=== PATIENT | female | born 1995 | race Caucasian/White ===

== ENCOUNTER 2017-12-07 05:04 | Inpatient (IN) | payer OTHER, SELFPAY ==
[2017-12-07] MEDS: Lactated Ringers 1,000 ML 50 ML IV ×3 (05:50→13:03)
[2017-12-07 06:23] LABS: Hematocrit 34.3 % (37-47); Hemoglobin 11.1 g/dl (12.0-15.0); Mean Corp Hgb Conc 32.4 g/gl (32-36); Mean Corpuscular Hgb 28.3 pg (27.0-32.0); Mean Corpuscular Volume 87.5 fL (81-99); Mean Platelet Vol. 10.3 fl (6.2-12.0); Platelet Count 217 K/mm3 (150-450); RBC Distribution Width CV 14.2 % (11.6-14.6); RBC Distribution Width SD 45.3 fl (35.1-43.9); Red Blood Count 3.92 M/mm3 (4.2-5.4); White Blood Count 17.9 K/mm3 (4.4-11.0)
[2017-12-07 06:27] LABS: Scan Indicated on CBC? Y/N NO
[2017-12-07 06:31] VITALS: BMI 30.8
[2017-12-07] MEDS: proMETHazine 25 MG/ML Syringe IV (06:41)
[2017-12-07] MEDS: fentaNYL-bupivacaine (epidural) 100 ML BAG EPIDURAL ×2 (07:30→12:36)
--- NOTE | 2017-12-07 08:45 | PCM.HP.OB ---
History Date of Admission: 12/07/17 Final SILVIANO: 12/08/17 Final SILVIANO Source: US <20 weeks Gestational age: 39 Weeks and 6 Days History of this : 21-year-old 1 para 0 female who presents at 39-6/7 weeks gestation with spontaneous rupture membranes in labor. She denies any gross vaginal bleeding she has had leaking of fluid since approximately 4:30 AM. She has been deandre all night and they got more intense. She arrived to labor and delivery and was found to be ruptured and in labor. He has been uncomplicated to date. Medical history is significant for pain headaches irritable bowel syndrome kidney stones and history of abnormal Pap smears. Past surgical history: Colectomy, cystoscopy, tooth extraction Allergies No Known Allergies Allergy (Verified 12/07/17 06:28) Current Medications Acetaminophen (Tylenol) 325 - 650 mg PO Q4H PRN PRN PRN Reason: PAIN OR FEVER >100.4F Al Hydroxide/Mg Hydroxide (Mylanta Ii) 15 - 30 ml PO Q4H PRN PRN PRN Reason: INDIGESTION Citric Acid/Sodium Citrate (Bicitra) 30 ml PO UD PRN Lactated Ringer's () 1,000 mls @ 50 mls/hr IV .Q20H MONICA Last Admin: 12/07/17 08:11 Dose: 50 mls/hr Nalbuphine HCl (Nubain) 5 - 10 mg IV Q3H PRN PRN PRN Reason: PAIN (4-10/10) Ondansetron HCl (Zofran) 4 mg IV Q8H PRN PRN PRN Reason: NAUSEA Promethazine HCl (Phenergan) 6.25 - 12.5 mg IV Q4H PRN PRN; Protocol PRN Reason: IF NAUSEA PERSISTS Last Admin: 12/07/17 06:41 Dose: 12.5 mg Sodium Chloride () 5 - 15 ml IV UD MONICA Last Admin: 12/07/17 08:13 Dose: Not Given Smoking Status: Never smoker Alcohol: None Drug Use: none Number of Fetus(es): 1 Review of Systems Constitutional: Denies: Chills, Fever Cardiovascular: Denies: Chest Pain Respiratory: Denies: Cough Physical Exam General: Alert, Cooperative, No apparent distress Cardiovascular: Regular Rhythm Lungs: Normal air movement Abdomen: Soft, Non Tender, Non-Distended, Gravid, Appropriate for Gestational Age Estimated gestational size: Appropriate for gestational size Presentation: Cephalic Cervix Dilation (cm): 6 Station: 0 Effacement (%): 90 Assessment/Plan The heart tones are category 1. Tocometer shows regular contractions. 21-year-old 1 para 0 at 39-6/7 weeks gestation with spontaneous rupture of labor and brings in labor. Estimated weight is less than 4500 g and pelvis clinically adequate to expect vaginal delivery. May have epidural or oxide or Nubain as needed for pain control. And augmentation as needed.
[2017-12-07] MEDS: Oxytocin 30 units/NS 500 ml 30 UNITS/500 ML IV.SOLN IV (12:36)
[2017-12-07] MEDS: Oxytocin 30 units/NS 500 ml 30 UNITS/500 ML IV.SOLN 334 UNITS IV (16:32)
[2017-12-07] MEDS: Oxytocin 30 units/NS 500 ml 30 UNITS/500 ML IV.SOLN 167 UNITS IV (17:02)
--- NOTE | 2017-12-07 17:04 | PCM.OB.VAG ---
Vaginal Delivery Maternal Presentation: Active Labor Amniotic Membrane Rupture Type: Spontaneous at home Amniotic Fluid Description: Clear Final SILVIANO: 12/08/17 Final SILVIANO Source: US <20 weeks Gestational age: 39 Weeks and 6 Days Date of Procedure: 12/07/17 Pre-Operative Diagnosis: labor, maternal exhaustion Post-Operative Diagnosis: same Surgery/ Procedure Performed: Vacuum Assisted Vaginal Delivery - outlet Type of Anesthesia: Epidural Description of Procedure: Patient was complete for 4 hours, pushing for 3+ hours. The first 1-1/2-2 hours she did not make a lot of progress. The last hour she made significant progress. The position was ROT, +5 station, labia 2 cm w/ maternal pushing. There was a moderate amount of caput. With maternal push and medial rotation I was able to manually rotate the position to THEODORE. She pushed 2 more times without significant descent. The position stayed THEODORE. I discussed with her and her option of trial of vacuum assisted delivery as she was getting fatigued. She desired trial of vacuum. EFW < 4500 gm clinically, pelvis clinically adequate. Carr in place. Epidural in. The Kiwi vacuum was placed and the pressure created to 550 mmHg. I pulled with 1 contraction with significant descent. Pulled with the second contraction to and the vacuum was removed with 0 pop offs. The head was delivered then with terminal pushing efforts as the perineum was supported. The shoulders were delivered with maternal pushing efforts and minimal downward traction in less than 15 seconds without difficulty. The remainder the delivered quickly without difficulty and the infant was placed on the maternal abdomen. The cord was clamped and cut after 1 minute. Cord gases were collected. The placenta delivered spontaneously and intact. The second-degree perineal laceration was reapproximated with 2-0 Vicryl suture. A vaginal sweep was completed. Sponge and needle counts were correct. Presentation: THEODORE Placental Delivery Description: Spontaneous Placenta Disposition: [facility] Cord Vessel Description: 3 Vessels Cord Entanglement: None Drain: Carr to straight drain Estimated Blood Loss: 450cc Infant A gender: Male (1 minute): 8 (5 minute): 9 Episiotomy Description: None Laceration: 2nd degree Medications given after delivery: IV Pitocin Complications: None
[2017-12-07] MEDS: Naproxen 250 MG Tablet PO (19:33)
[2017-12-07 19:45] VITALS: BP 103/65; PULSE 107; RESP 18; TEMP 37.4; O2SAT 98
[2017-12-08 00:25] VITALS: BP 108/50; PULSE 102; RESP 18; TEMP 36.6; O2SAT 100
[2017-12-08] MEDS: Acetaminophen 500 MG Tablet 1000 MG PO ×2 (01:01→09:34)
[2017-12-08] MEDS: Naproxen 250 MG Tablet PO ×2 (04:49→14:25)
[2017-12-08 04:52] VITALS: BP 109/65; PULSE 96; RESP 16; TEMP 36.6; O2SAT 99
--- NOTE | 2017-12-08 08:37 | PCM.PN.OB ---
Subjective: Patient sitting up in bed, denies any other complaints today. Reports baby is latching well to breast; denies nipple or breast pain. Patient reports that vaginal bleeding is subsiding; denies any issues with urination or ambulation. Objective: Breasts soft, filling. Nipples without redness, cracks or blisters FF midline @ 2FB below umbilicus Scant Rubra Lochia Perineum Well Approximated - Physical Exam General: Alert, Oriented x3, Cooperative HEENT: Atraumatic, Normocephalic Neck: Supple Lungs: Clear to auscultation, Normal air movement Cardiovascular: Regular rate, No murmurs Abdomen: Soft, Non Tender Extremities: No edema, Capillary Refill Less than 3 Seconds, No Calf Tenderness Skin: No rashes, No breakdown Musculoskeletal: No Tenderness to Palpation of Joints or Extremities Neurological: Cranial nerves II-XII grossly intact, Deep Tendon Reflexes 2+/4 and Symmetrical, Coordination normal Psych/Mental Status: Normal Affect, Appropriate, Alert and oriented to time, place, person, mood and affect Vital Signs Temp Pulse Resp BP Pulse Ox 98 F 96 16 109/65 99 12/08/17 04:52 12/08/17 04:52 12/08/17 04:52 12/08/17 04:52 12/08/17 04:52 Oxygen Delivery Method Room Air Weight: 173 lb 15.115 oz Body Mass Index (BMI) 30.8 Intake and Output for Last 24 Hours 12/06/17 12/07/17 12/08/17 23:59 23:59 23:59 Intake Total 4372 / 4372 Output Total 2200 / 2200 Balance 2172 / 2172 Medical Necessity - Tobacco Use Smoking Status: Never smoker Assessment/Plan A: 21 y/o G1 now P1, s/p VAVD, PPD #1, Normal course P: 1) Continue present management 2) Help support , IBCLC visit today 3) Anticipate discharge to home tomorrow Lily Lema CNM
[2017-12-08 09:00] VITALS: BP 117/62; PULSE 100; RESP 16; TEMP 35.9; O2SAT 98
[2017-12-08] MEDS: Dibucaine 30 GM Tube 1 APPLIC TOPICAL (09:35)
[2017-12-08 13:15] VITALS: BP 106/65; PULSE 80; RESP 16; TEMP 35.9; O2SAT 98
[2017-12-08] MEDS: Senna/Docusate Sodium 1 Tablet PO (17:35)
[2017-12-08 17:40] VITALS: BP 110/56; PULSE 102; RESP 18; TEMP 36.1
[2017-12-08 19:40] VITALS: BP 116/72; PULSE 85; RESP 16; TEMP 36.5
[2017-12-09 01:15] VITALS: BP 107/57; PULSE 90; RESP 18; TEMP 36.3
[2017-12-09] MEDS: Naproxen 250 MG Tablet PO (04:52)
[2017-12-09 08:15] VITALS: BP 111/68; PULSE 95; RESP 20; TEMP 36.4
--- NOTE | 2017-12-09 11:35 | PCM.DCVAG ---
Discharge Diet: No Restrictions Discharge Activity: Return to Normal Activity, May not drive while taking narcotic pain medications., May Shower May resume sexual activity in: 4-6 weeks Additional Activity Instructions:: Nothing in the vagina for 4-6 weeks. You may return to work/school in 6 weeks. Call your doctor if your incision/area has: Continuous Slow Oozing, Sudden Increased Bleeding, Increased Pain/ Swelling, Increased Redness, Foul Smelling Discharge Additional Instructions: If you experience any of the following, contact your healthcare provider. Bleeding that soaks a pad every hour for 2 hours Fever 100.4 or higher Unrelieved incision or abdominal pain Swelling, redness, discharge or bleeding from your incision or episiotomy site Your incision begins to separate Problems urinating (including inability to urinate or burning while urinating). Visual changes Severe headache Flu-like symptoms Pain or redness in one of both of your breasts Pain, warmth, tenderness or swelling in your legs, especially the calf area Frequent nausea and vomiting Symptoms of depression or anxiety If you experience any of the following, call 911 or go to the nearest Emergency Room. Chest pain Problems breathing Seizure activity Partial or complete paralysis of a body part, slurred speech, weakness or drooping of the face, or a sudden inability to walk or hold your balance Allergies/Adverse Reactions: Allergies No Known Allergies Allergy (Verified 12/07/17 06:28) Medications to take at Discharge Vits [Prenatabs FA ] 1 tablet PO DAILY 12/07/17 Hydrocodone/Acetaminophen [[place] 5-325 Tablet] 1 each PO Q6H PRN PRN 5 Days #8 tablet 12/09/17 Ibuprofen [Motrin] 600 mg PO Q6H PRN #60 tab 12/09/17 The following prescriptions were given: Hydrocodone/Acetaminophen [[place] 5-325 Tablet] 1 each PO Q6H PRN PRN 5 Days #8 tablet PRN Reason: Pain Ibuprofen [Motrin] 600 mg PO Q6H PRN #60 tab PRN Reason: Pain Please Follow Up With: Adriana Dupont MD - [phone] When: Call to make an appointment with your doctor's office in 6 weeks. If you had elevated Blood Pressure or 4th degree laceration you will need to be seen in 2 weeks. Primary Care Physician: Ziol,Rahda, OTOLARYNGOLOGIST-C [Primary Care Provider] -
--- NOTE | 2017-12-09 11:36 | DCINST_ITS ---
Discharge Diet: No Restrictions Discharge Activity: Return to Normal Activity, May not drive while taking narcotic pain medications., May Shower May resume sexual activity in: 4-6 weeks Additional Activity Instructions:: Nothing in the vagina for 4-6 weeks. You may return to work/school in 6 weeks. Call your doctor if your incision/area has: Continuous Slow Oozing, Sudden Increased Bleeding, Increased Pain/ Swelling, Increased Redness, Foul Smelling Discharge Additional Instructions: If you experience any of the following, contact your healthcare provider. * Bleeding that soaks a pad every hour for 2 hours * Fever 100.4 or higher * Unrelieved incision or abdominal pain * Swelling, redness, discharge or bleeding from your incision or episiotomy site * Your incision begins to separate * Problems urinating (including inability to urinate or burning while urinating) . * Visual changes * Severe headache * Flu-like symptoms * Pain or redness in one of both of your breasts * Pain, warmth, tenderness or swelling in your legs, especially the calf area * Frequent nausea and vomiting * Symptoms of depression or anxiety If you experience any of the following, call 911 or go to the nearest Emergency Room. * Chest pain * Problems breathing * Seizure activity * Partial or complete paralysis of a body part, slurred speech, weakness or drooping of the face, or a sudden inability to walk or hold your balance Allergies/Adverse Reactions: Allergies No Known Allergies Allergy (Verified 12/07/17 06:28) Medications to take at Discharge Vits [Prenatabs FA ] 1 tablet PO DAILY 12/07/17 Hydrocodone/Acetaminophen [[place] 5-325 Tablet] 1 each PO Q6H PRN PRN 5 Days #8 tablet 12/09/17 Ibuprofen [Motrin] 600 mg PO Q6H PRN #60 tab 12/09/17 The following prescriptions were given: Hydrocodone/Acetaminophen [[place] 5-325 Tablet] 1 each PO Q6H PRN PRN 5 Days #8 tablet PRN Reason: Pain Ibuprofen [Motrin] 600 mg PO Q6H PRN #60 tab PRN Reason: Pain Please Follow Up With: Adriana Dupont MD - [phone] When: Call to make an appointment with your doctor's office in 6 weeks. If you had elevated Blood Pressure or 4th degree laceration you will need to be seen in 2 weeks. Primary Care Physician: Radha Park NP-C [Primary Care Provider] -
--- NOTE | 2017-12-09 11:36 | PCM.PN.OB ---
Subjective: pain well controlled,a verage lochia, + BM. - Physical Exam General: Alert, Cooperative, No apparent distress Vital Signs Temp Pulse Resp BP Pulse Ox 97.6 F L 95 20 H 111/68 98 12/09/17 08:15 12/09/17 08:15 12/09/17 08:15 12/09/17 08:15 12/08/17 13:15 Oxygen Delivery Method Room Air Weight: 78.9 kg Body Mass Index (BMI) 30.8 Intake and Output for Last 24 Hours 12/07/17 12/08/17 12/09/17 23:59 23:59 23:59 Intake Total 4372 / 4372 Output Total 2200 / 2200 Balance 2172 / 2172 Medical Necessity - Tobacco Use Smoking Status: Never smoker Assessment/Plan PPD#2 s/p vacuum assisted vaginal delivery ready for d/c
[2017-12-09 14:00] VITALS: BP 105/58; PULSE 98; TEMP 36.5
== END 2017-12-09 15:00 | disposition home or self-care (01) | DRG 775 ==
PROVIDERS: Obstetrics & Gynecology; Admitting Provider Obstetrics & Gynecology; Family Provider Nurse Practitioner Family; PCP Nurse Practitioner Family; Visit Provider Obstetrics & Gynecology
DX: O32.4XX0 Maternal care for high head at term, not applicable or unspecified (principal); O42.02 Full-term premature rupture of membranes, onset of labor within 24 hours of rupture; O70.1 Second degree perineal laceration during delivery; O32.2XX0 Maternal care for transverse and oblique lie, not applicable or unspecified; Z3A.39 39 weeks gestation of pregnancy; Z37.0 Single live birth
CPT/HCPCS: 59050; 85027; 86850; 86900; 99218; J7120; G0378

== ENCOUNTER 2019-12-12 18:36 | Inpatient (IN) | payer OTHER, SELFPAY ==
[2019-12-12] VITALS (11 sets, daily range): BP systolic 121–203; BP diastolic 64–139; PULSE 82–93; TEMP 36.7–37.7; O2SAT 99–100; BMI 31.1
[2019-12-12] MEDS: Lactated Ringers 500 ML 999 ML IV (19:22)
[2019-12-12 19:24] LABS: ROM Internal Control Test YES-OK TO RESULT pt. (Internal QC)
[2019-12-12 19:25] LABS: ROM Patient Test POSITIVE (Negative)
[2019-12-12 19:35] LABS: Absolute Lymphocyte Count 2.42 X10^3/uL (0.83-4.51); Absolute Neutrophil Count 9.9 X10^3/uL (2.0-7.7); Basophil# 0.02 X10^3/uL; Basophil% 0.1 % (0-1); Eosinophil# 0.08 X10^3/uL; Eosinophils% 0.6 % (0-5); Hematocrit 41.3 % (37-47); Hemoglobin 13.5 g/dL (12.0-15.0); Lymphocyte # 2.42 X10^3/ul (4.0); Lymphocyte % 17.6 % (19-41); Mean Corp Hgb Conc 32.7 g/dL (32-36); Mean Corpuscular Hgb 29.8 pg (27.0-32.0); Mean Corpuscular Volume 91.2 fL (81-99); Monocyte# 1.18 X10^3/uL; Monocyte% 8.6 % (0-10); NRBC Flagged by Analyzer 0 % (0-5); Neutrophil # 9.85 X10^3/uL (2.7-7.7); Neutrophil % 71.8 % (47-70); Platelet Count 183 K/mm3 (150-450); RBC Distribution Width SD 57.2 fl (35.1-43.9); Red Blood Count 4.53 M/mm3 (4.2-5.4); White Blood Count 13.7 K/mm3 (4.4-11.0)
[2019-12-12] MEDS: Lactated Ringers 1,000 ML 200 ML IV (19:53)
[2019-12-12] MEDS: Oxytocin 30 units/NS 500 ml 30 UNITS/500 ML IV.SOLN 334 UNITS IV (20:50)
--- NOTE | 2019-12-12 21:16 | PCM.HP.OB ---
History Date of Admission: 12/12/19 Final SILVIANO: 12/06/19 Final SILVIANO Source: US <20 weeks Gestational age: 40 Weeks and 6 Days History of this : This is a 23 year-old, G [], P [], at 40 weeks gestational age. Allergies No Known Allergies Allergy (Verified 12/12/19 19:25) Home Medications: Home Medications Vits [Prenatabs FA ] 1 tablet PO DAILY 12/07/17 Docusate Sodium [Colace] 100 mg PO DAILY 12/12/19 Ferrous Sulfate [Iron] 325 mg PO DAILY 12/12/19 Smoking Status: Never smoker Alcohol: None History Past Pregnancies: Past Pregnancies Delivery Date Name GA/ Weeks Outcome Route Wt Sex Labor Length Anesthesia Delivery Location Provider FOB Physical Exam Vitals: Vital Signs Temp Pulse BP Pulse Ox 98.1 F 86 124/67 H 99 12/12/19 19:30 12/12/19 21:12 12/12/19 21:12 12/12/19 21:12 Assessment/Plan This is a 23 year-old, G2, P2, at 40&6 weeks gestational age. Patient admitted & proceeded to an . Routine care See [facility] prenatals
--- NOTE | 2019-12-12 21:18 | OP.PCM_ITS ---
Vaginal Delivery Maternal Presentation: Active Labor Amniotic Membrane Rupture Type: Spontaneous at home Amniotic Fluid Description: Clear Final SILVIANO: 12/06/19 Gestational age: 40 Weeks and 6 Days Date of Procedure: 12/12/19 Pre-Operative Diagnosis: Labor Post-Operative Diagnosis: Labor Surgery/ Procedure Performed: Spontaneous Vaginal Delivery Type of Anesthesia: Local with 1% lidocaine Description of Procedure: Patient prepped & draped in stirrups when C/C/+2. She pushed to deliver the fe nicole head. head gently guided to allow delivery of anterior and posterior shoulders. No excess traction placed on the head. Shoulders and body easily delivered. Infant placed on maternal abdomen where 3VC was clamped and cut in delayed fashion. Good uterine tone obtained. Presentation: Vertex, THEODORE Placental Delivery Description: Spontaneous Placenta Disposition: [facility] Cord Vessel Description: 3 Vessels Cord Entanglement: None Estimated Blood Loss: 300ml A gender: Female - Elvira (1 minute): 8 (5 minute): 9 Episiotomy Description: None Laceration: 1st degree - perineal - repaired wiht 3-0 vicryl Medications given after delivery: IV Pitocin Complications: None
[2019-12-12] MEDS: Ibuprofen 600 MG Tablet PO (23:19)
[2019-12-13] VITALS (11 sets, daily range): BP systolic 112–123; BP diastolic 69–84; PULSE 76–93; RESP 16–18; TEMP 36.4–37.2; O2SAT 96–99
[2019-12-13] MEDS: Ibuprofen 600 MG Tablet PO ×3 (06:31→21:13)
[2019-12-13] MEDS: Senna/Docusate Sodium 1 Tablet PO (08:16)
--- NOTE | 2019-12-13 11:02 | PCM.PN.OB ---
Subjective: Doing well per patient and nursing staff. Ambulating and taking PO without difficulty. without difficulty. Pain controlled. Denies any headache, visual changes, chest pain, increased shortness of breath, increased vaginal bleeding, or leg pain. Planning D/C home today. - Physical Exam Vitals/I&O's: Vital Signs Temp Pulse Resp BP Pulse Ox 98.3 F 86 16 123/77 H 96 12/13/19 08:19 12/13/19 08:20 12/13/19 08:19 12/13/19 08:20 12/13/19 08:20 Oxygen Delivery Method Room Air Weight: 176 lb Body Mass Index (BMI) 31.1 Intake and Output for Last 24 Hours 12/11/19 12/12/19 12/13/19 23:59 23:59 23:59 Intake Total 1180 / 1180 Output Total 600 / 600 Balance 580 / 580 General: Alert, Oriented x3, Cooperative HEENT: Atraumatic, Normocephalic Neck: Trachea Midline Lungs: Clear to auscultation, Normal air movement, No rhonchi, No wheeze Cardiovascular: Regular rate, Regular Rhythm, No murmurs Abdomen: Bowel Sounds Present, Soft - appropriately tender. Fundus firm 3 below U Extremities: No edema - Debra's negative Neurological: Deep Tendon Reflexes 2+/4 and Symmetrical Psych/Mental Status: Normal Affect, Appropriate Laboratory Results 12/12/19 18:45: Vag Amniotic Fld Detect POSITIVE H 12/12/19 19:20: WBC 13.7 H, RBC 4.53, Hgb 13.5, Hct 41.3, MCV 91.2, MCH 29.8, MCHC 32.7, RDW Std Deviation 57.2 H, RDW Coeff of Jodi 17.0 H, Plt Count 183, MPV 9.0, Immature Gran % (Auto) 1.300 H, Neut % (Auto) 71.8 H, Lymph % (Auto) 17.6 L, [place] % (Auto) 8.6, Eos % (Auto) 0.6, Baso % (Auto) 0.1, Absolute Neuts (auto) 9.9 H, Absolute Lymphs (auto) 2.42, Nucleated RBC % 0 12/12/19 19:20: Blood Type A POSITIVE, Antibody Screen NEGATIVE Current Medications Acetaminophen (Tylenol) 1,000 mg PO Q8H PRN PRN PRN Reason: Pain Score 1-3/10 Bisacodyl (Dulcolax) 10 mg RECTAL UD PRN PRN Reason: If no BM Dibucaine (Dibucaine) 1 applic TOPICAL TID PRN PRN; Protocol PRN Reason: Discomfort Hydrocortisone (Hytone) 1 applic TOPICAL TID PRN PRN; Protocol PRN Reason: Discomfort Ibuprofen (Motrin) 600 mg PO Q6H PRN PRN PRN Reason: Pain Score 1-3/10 Last Admin: 12/13/19 06:31 Dose: 600 mg Documented by: Methylergonovine Maleate (Methergine) 0.2 mg IM X1 PRN PRN Reason: Excess bleeding/uterine atony Ondansetron HCl (Zofran) 4 mg IV Q4H PRN PRN PRN Reason: Nausea Oxycodone HCl (Oxyir) 5 - 10 mg PO Q4H PRN PRN PRN Reason: Pain Score 4-10/10 Senna/Docusate Sodium (Senokot-S, Ariella-Colace) 1 - 2 tablet PO DAILY PRN PRN PRN Reason: Constipation Last Admin: 12/13/19 08:16 Dose: 1 tablet Documented by: Simethicone (Mylicon) 80 mg PO PCHS PRN PRN Reason: Indigestion/Stomach pain Sodium Chloride () 5 - 15 ml IV UD PRN PRN Reason: SALINE FLUSH Medical Necessity - Tobacco Use Smoking Status: Never smoker Assessment/Plan A:PPD #1 P: 1) Routine and instructions 2) Planning OTC ibuprofen and Tylenol for pain, declines prescription 3) D/C home today 4) Follow up at 2 weeks and 6 weeks
--- NOTE | 2019-12-13 11:16 | DCINST_ITS ---
Discharge Diet: No Restrictions Discharge Activity: Return to Normal Activity, May not drive while taking narcotic pain medications., May Shower, May Take a Tub Bath May resume sexual activity in: 4-6 weeks Weight Bearing Status: Full weight bearing Additional Activity Instructions:: Nothing in the vagina for 4-6 weeks. You may return to work/school in 6 weeks. Call your doctor if your incision/area has: Continuous Slow Oozing, Sudden Increased Bleeding, Increased Pain/ Swelling, Increased Redness, Foul Smelling Discharge Call your doctor if you observe: Fever of 101 or Higher, Inability to urinate, Inability to have a bowel movement, Using more than one pad per hour, Shortness of breath, Chest pain, Increased palpitations (irregular heartbeat), Calf discomfort, Uncontrolled pain Additional Instructions: If you experience any of the following, contact your healthcare provider. * Bleeding that soaks a pad every hour for 2 hours * Fever 100.4 or higher * Unrelieved incision or abdominal pain * Swelling, redness, discharge or bleeding from your incision or episiotomy site * Your incision begins to separate * Problems urinating (including inability to urinate or burning while urinating). * Visual changes * Severe headache * Flu-like symptoms * Pain or redness in one of both of your breasts * Pain, warmth, tenderness or swelling in your legs, especially the calf area * Frequent nausea and vomiting * Symptoms of depression or anxiety If you experience any of the following, call 911 or go to the nearest Emergency Room. * Chest pain * Problems breathing * Seizure activity * Partial or complete paralysis of a body part, slurred speech, weakness or drooping of the face, or a sudden inability to walk or hold your balance Allergies/Adverse Reactions: Allergies No Known Allergies Allergy (Verified 12/12/19 19:25) Medications to take at Discharge Vits [Prenatabs FA ] 1 tablet PO DAILY 12/07/17 Docusate Sodium [Colace] 100 mg PO DAILY 12/12/19 Ferrous Sulfate [Iron] 325 mg PO DAILY 12/12/19 Please Follow Up With: Dori Galindo CNM When: Call to make an appointment with your doctor in 6 weeks. If you had elevated Blood Pressure or 4th degree laceration you will need to be seen in 2 weeks. Primary Care Physician: Ziol,Radha, CARPENTER HELPER-C [Primary Care Provider] - Test Results: Test results from this visit will be discussed in further detail at your follow- up appointment, if applicable. Proposed Discharge Date: 12/13/19
[2019-12-13] MEDS: Acetaminophen 500 MG Tablet 1000 MG PO (16:27)
== END 2019-12-13 22:35 | disposition home or self-care (01) | DRG 807 ==
LOC: WPOUT 18:41 → WP 18:57 → WPOUT 12-13 07:23
PROVIDERS: Obstetrics & Gynecology; Admitting Provider Obstetrics & Gynecology; PCP Nurse Practitioner Family; Referring Provider Obstetrics & Gynecology; Visit Provider Obstetrics & Gynecology
DX: O42.92 Full-term premature rupture of membranes, unspecified as to length of time between rupture and onset of labor (principal); Z37.0 Single live birth; O70.0 First degree perineal laceration during delivery; Z3A.40 40 weeks gestation of pregnancy
CPT/HCPCS: 59025; 59050; 84112; 85025; 86850; 86900; 86901; 99218; J7120; G0378

== ENCOUNTER → 2024-08-29 | Outpatient (CLI) | payer BC, SELFPAY ==
[2024-08-29 13:24] LABS: AST(SGOT) 9 U/L (15-37); Alanine Aminotransfer ALT/SGPT 17 U/L (13-56); Cholesterol 185 mg/dL (200); High Density Lipoprotein 47 mg/dL; Triglycerides 133 mg/dL; Very Low Density Lipoprotein 27 mg/dL (5-40)
== END | disposition home or self-care (01) ==
PROVIDERS: PCP Nurse Practitioner Family; Referring Provider Physician Assistant Medical; Visit Provider Physician Assistant Medical
DX: L70.0 Acne vulgaris (principal); Z79.899 Other long term (current) drug therapy
CPT/HCPCS: 36415; 80061; 84450; 84460

== ENCOUNTER → 2024-12-25 | Outpatient (CLI) | payer BC, SELFPAY ==
[2024-12-25 17:41] LABS: Absolute Lymphocyte Count 2.66 X10^3/uL (0.83-4.51); Absolute Neutrophil Count 4.7 X10^3/uL (2.0-7.7); Basophil# 0.02 X10^3/uL; Basophil% 0.3 % (0-1); Eosinophil# 0.09 X10^3/uL; Eosinophils% 1.1 % (0-5); Hematocrit 38.6 % (37-47); Hemoglobin 12.9 g/dL (12.0-15.0); Lymphocyte # 2.66 X10^3/ul (0.83-4.51); Lymphocyte % 33.5 % (19-41); Mean Corp Hgb Conc 33.4 g/dL (32-36); Mean Corpuscular Hgb 29.1 pg (27.0-32.0); Mean Corpuscular Volume 87.1 fL (81-99); Mean Platelet Vol. 8.9 fl (6.2-12.0); Monocyte% 6.3 % (0-10); NRBC Flagged by Analyzer 0 % (0-5); Neutrophil # 4.65 X10^3/uL (2.7-7.7); Neutrophil % 58.7 % (47-70); Platelet Count 296 K/mm3 (150-450); RBC Distribution Width CV 12.5 % (11.6-14.6); Red Blood Count 4.43 M/mm3 (4.2-5.4); White Blood Count 7.9 K/mm3 (4.4-11.0)
[2024-12-25 18:08] LABS: AST(SGOT) 18 U/L (<=31); Alanine Aminotransfer ALT/SGPT 13 U/L (<=34); Albumin, Serum 4.5 g/dL (3.5-5.0); Alkaline Phosphatase 78 U/L (35-104); Bilirubin, Direct 0.15 mg/dL (0.00-0.30); Cholesterol 213 mg/dL (<=200); Globulin 2.9 g/dL (2.2-4.2); High Density Lipoprotein 35 mg/dL; Low Density Lipoprotein Calc. 130 mg/dL; Protein, Total 7.4 g/dL (5.9-8.4); Total Bilirubin 0.41 mg/dL (0.00-1.30); Triglycerides 242 mg/dL; Very Low Density Lipoprotein 48 mg/dL (5-40); cholesterol:hdl ratio screen 6.17
== END | disposition home or self-care (01) ==
LOC: MTLAB 14:03
PROVIDERS: PCP Nurse Practitioner Family; Referring Provider Physician Assistant Medical; Visit Provider Physician Assistant Medical
DX: L70.0 Acne vulgaris (principal); Z79.899 Other long term (current) drug therapy
CPT/HCPCS: 36415; 80061; 80076; 85025